=== PATIENT | male | born 1985 | race Caucasian/White ===

== ENCOUNTER 2017-07-22 15:41 | Emergency (ER) | payer SELFPAY ==
[~2017-07-22] VITALS: Ht 175.3 cm; Wt 106.4 kg
[2017-07-22 15:46] VITALS: BP 178/94; PULSE 76; TEMP 36.8; O2SAT 96; Ht 175.3 cm; Wt 106.4 kg
[2017-07-22] MEDS ORDERED: AMOXICILLIN 500 MG CAP PO STA (16:02)
[2017-07-22] MEDS ORDERED: AMOX500C3 PO (16:05)
--- NOTE | 2017-07-22 16:06 | EMERGENCY ROOM VISIT NOTE ---
ED Visit Note First contact with patient: 15:49 CHIEF COMPLAINT: Left earache HISTORY OF PRESENT ILLNESS: This 32-year-old male presents to the emergency department and states they have had an earache on the left. The patient has had a sore throat or recent URI for approximately the past 2 weeks. There is no cough and no hoarseness. They rate the pain as sharp and 6/10. The pain is in the left ear. They have had intermittent DayQuil and Tylenol for the pain without relief. The patient denies any fever. He denies significant history of infection. He has not been swimming recently. He does report some muffled hearing. He denies any history of seasonal allergies or asthma. The patient is a current smoker. REVIEW OF SYSTEMS: A 6 system review of systems was completed with positives and pertinent negatives listed in the HPI. ALLERGIES: None MEDICATIONS: None PMH: None. The patient did not receive an influenza vaccine this year. SH: The patient lives locally with family. He denies drug, alcohol use. The patient is a current smoker. PHYSICAL EXAM: Vital Signs: Reviewed Nurse's notes, temperature 30 six-pointC orally. GENERAL: This is a 32-year-old white male, in no acute distress, well- developed, well-nourished. SKIN: Normal. HEART: Regular rate and rhythm without murmurs gallops or rubs. LUNGS: Clear to auscultation and breath sounds equal, no wheezes, rales, or rhonchi. MOUTH: The pharynx is not inflamed and the tonsils are not enlarged. The airway is patent. EARS: The left tympanic membrane is erythematous, inflamed and bulging. The left external auditory canal is clear with no tragus tenderness. The right tympanic membrane is pearly gutierrez without erythema or effusion. The right external auditory canal is clear. LYMPH: There is no lymphadenopathy. ED COURSE: I examined the patient. The patient's symptoms and examination are consistent with an acute otitis media. He will be treated with p.o. antibiotics. He was given his first dose of 1 g amoxicillin. A prescription was sent to the pharmacy. Discharge instructions reviewed. The patient was discharged home in stable condition. I attest that I have personally reviewed the patient's current medication list. Blood Pressure Screening: Patient was found to have a slightly elevated blood pressure due to circumstances. I do not believe that the patient requires hypertension monitoring. Differential diagnosis includes otitis media, otitis externa, upper respiratory infection, acute sinusitis, allergic rhinitis, tinnitus, TM perforation, mastoiditis, malignancy, and others DIAGNOSIS: Acute otitis media of the left ear The chart was completed utilizing [employer] Speech voice recognition software. Grammatical errors, random word insertions, pronoun errors, and incomplete sentences are an occasional consequence of this system due to software limitations, ambient noise, and hardware issues. Any formal questions or concerns about the content, text, or information contained within the body of this dictation should be directly addressed to the provider for clarification. Current/Historical Medications Scheduled Amoxicillin (Amoxil), 1,000 MG PO TID Vital Signs Date Time Temp Pulse Resp B/P (MAP) Pulse Ox O2 Delivery O2 Flow Rate FiO2 07/22/17 15:46 36.8 76 18 178/94 96 Room Air Departure Information Impression Primary Impression: Left otitis media Dispostion Home / Self-Care Condition GOOD Prescriptions Amoxicillin (AMOXIL) 500 Mg Cap 1000 MG PO TID for 10 Days, #58 CAP Prov: Lise Benavides PA-C 07/22/17 Referrals No Doctor, Assigned (PCP) Patient Instructions ED Otitis Media Acute Adult, [facility] Additional Instructions You have been treated in the Emergency Department for an Inner Ear Infection ( Otitis Media). You were prescribed amoxicillin to be taken 1000 mg 3 times daily. This is an antibiotic. All antibiotics have the potential to cause diarrhea. Stop this medication and contact a medical provider if you were to develop any significant adverse side effects including: wheezing, shortness of breath, passing out, vomiting, or a diffuse rash. Always take antibiotics as directed and COMPLETE the ENTIRE course regardless of the improvement of your symptoms. For pain and fever control, you can use the following [id number] medicines (if >12 yo): Ibuprofen(Motrin, Advil) may be used for fever or pain. Use 600mg every six hours as needed. Take with food. Avoid using more than 2400mg in a 24 hour period. Do not use 2400mg per day for more than three consecutive days without physician direction. Prolonged inappropriate use can lead to stomach upset or ulcers. (AND/OR) Acetaminophen(Tylenol) may be used for fever or pain. Use 1000mg every six hours as needed. Avoid using more than 3000mg in a 24 hour period. You may take Sudafed as directed for your symptoms. Do not exceed recommended daily dosages. You should follow-up with your Primary Care Provider from today's Emergency Department visit. Return to the emergency department if you develop the following symptoms despite treatment course outlined above: headache, fever, intractable pain, increased redness, swelling, or purulent discharge. Problem Qualifiers Primary Impression: Left otitis media Otitis media type: suppurative Chronicity: acute Recurrence: not specified as recurrent Spontaneous tympanic membrane rupture: without spontaneous rupture Qualified Codes: H66.002 - Acute suppurative otitis media without spontaneous rupture of ear drum, left ear
== END 2017-07-22 16:10 | disposition home or self-care (01) ==
LOC: C.EDB 15:42 → C.EDD 16:10
DX: H66.002 Acute suppurative otitis media without spontaneous rupture of ear drum, left ear (principal); F17.200 Nicotine dependence, unspecified, uncomplicated